=== PATIENT | male | born 2000 | race Caucasian/White ===

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

== ENCOUNTER 2019-02-24 20:13 | Emergency (ER) | payer OTHER ==
[2019-02-24 20:24] VITALS: BP 132/49; PULSE 80; TEMP 99.1; BMI 17.9
--- NOTE | 2019-02-24 21:05 | PDOC ---
History of Present Illness - General Chief Complaint: Laceration Stated Complaint: RT HAND LACERATION Time Seen by Provider: 02/24/19 20:57 History Source: Patient Exam Limitations: No Limitations Past History - Past Medical History Allergies/Adverse Reactions: Allergies Allergy/AdvReac Type Severity Reaction Status Date / Time No Known Allergies Allergy Verified 02/24/19 20:24 Home Medications: Ambulatory Orders No Home Medications 0 dose .ROUTE UTDICT 10/24/13 COPD: No Thyroid Disease: No - Immunization History Immunization Up to Date: Yes - Psycho Social/Smoking Cessation Hx Smoking History: Never smoked Have you smoked in the past 12 months: No Number of Cigarettes Smoked Daily: 0 Information on smoking cessation initiated: No Hx Alcohol Use: No Drug/Substance Use Hx: Yes Substance Use Type: None *Physical Exam - Vital Signs Last Vital Signs Temp Pulse Resp BP Pulse Ox 99.1 F 80 17 132/49 L 100 02/24/19 20:21 02/24/19 20:21 02/24/19 20:21 02/24/19 20:21 02/24/19 20:21 - Physical Exam General Appearance: No: Apparent Distress Extremity: positive: Other (around 1 cm linear laceration along base of R pinky finger along medial aspect, FROM of R hand/fingers, no deformity or swelling noted) Integumentary: negative: Ecchymosis, Bruising Neurologic: positive: Alert Procedures - Laceration/Wound Repair Right 5th digit Wound Length: to 2.5 cm Wound Explored: clean Wound's Depth, Shape: superficial Irrigated w/ Saline: Yes Betadine Prep: Yes Anesthesia: 1% Lidocaine Wound Debrided: moderate Wound Repaired With: Sutures Suture Size/Type: 5:0, nylon Number of Sutures: 3 Layer Closure: No Splint Applied: Yes Type of Splint Applied: Finger splint ED Treatment Course - RADIOLOGY Radiology Studies Ordered: Category Date Time Status HAND- RIGHT [RAD] Stat Radiology 02/24/19 21:00 Ordered Medical Decision Making - Medical Decision Making 19 y/o M with no sig pmh presents with R pinky finger laceration after states his mom accidentally closed door on his finger. States is already UTD on tetanus. Denies numbness, tingling, other complains Plan: Xray to r/o fracture Lac repair 02/24/19 21:03 Xray negative Please see lac repair note Splint applied given proximity of lac to joints 02/24/19 21:47 Discharge - Discharge Information Problems reviewed: Yes Clinical Impression/Diagnosis: Finger laceration Qualifiers: Encounter type: initial encounter Finger: little finger Damage to nail status: without damage Foreign body presence: without foreign body Laterality: right Qualified Code(s): S61.216A - Laceration without foreign body of right little finger without damage to nail, initial encounter Condition: Stable Disposition: HOME - Admission No - Additional Discharge Information Prescription Drug Monitoring Program (I-STOP) results: I-STOP not reviewed - Follow up/Referral - Patient Discharge Instructions Patient Printed Discharge Instructions: DI for Laceration Repair Additional Instructions: Thank you for choosing [facility]. It was a pleasure taking care of you. Please keep site of injury clean for the next 24 hours. You may then gently clean with soap and water. Please return in 7 to 10 days for suture removal. Return to the Emergency Department if your symptoms worsen or persist, you have fever, redness, purulent drainage, streaking or other concerning symptoms. - Post Discharge Activity
== END 2019-02-24 21:51 | disposition home or self-care (01) ==
LOC: JERFT 20:13
PROC: 0HQFXZZ Repair Right Hand Skin, External Approach (ICD-10-PCS; principal; 2019-02-24)
PROC: 2W3JX1Z Immobilization of Right Finger using Splint (ICD-10-PCS; 2019-02-24)
DX: S61.216A Laceration without foreign body of right little finger without damage to nail, initial encounter (principal); W23.0XXA Caught, crushed, jammed, or pinched between moving objects, initial encounter; Y93.89 Activity, other specified; Y92.038 Other place in apartment as the place of occurrence of the external cause; Y99.8 Other external cause status
CPT/HCPCS: 12001-25; 29130; 73130-TC-RT-FY; 99281-25

== ENCOUNTER 2019-03-02 12:10 | Emergency (ER) | payer OTHER ==
[2019-03-02 12:22] VITALS: BP 137/63; PULSE 62; TEMP 98.3; BMI 23.6
--- NOTE | 2019-03-02 13:51 | PDOC ---
History of Present Illness - General Chief Complaint: Vomiting Blood Stated Complaint: SUTURE REMOVAL Time Seen by Provider: 03/02/19 12:44 History Source: Patient Exam Limitations: No Limitations - History of Present Illness Initial Comments: 03/02/19 13:50 19-year-old male presents to ED with complaints of blood tinged sputum noted in the morning after brushing his teeth while clearing his throat. Patient states was not bleeding from his gums nor did he have a cough prior to onset. Patient states symptoms did not continue throughout the day but then again this morning after brushing his teeth had noticed it again. Patient denies difficulty breathing, chest pain, dizziness, stomach pain, or weight loss. patient denies smoking but was smoking marijuana up until 1 week ago. Is this a multiple visit Asthma Patient?: No Timing/Duration: intermittent Severity: mild Associated Symptoms: reports: denies symptoms Past History - Travel Traveled outside of the country in the last 30 days: No Close contact w/someone who was outside of country & ill: No - Past Medical History Allergies/Adverse Reactions: Allergies Allergy/AdvReac Type Severity Reaction Status Date / Time No Known Allergies Allergy Verified 02/24/19 20:24 Home Medications: Ambulatory Orders No Home Medications 0 dose .ROUTE UTDICT 10/24/13 COPD: No Thyroid Disease: No - Immunization History Immunization Up to Date: Yes - Psycho Social/Smoking Cessation Hx Smoking History: Never smoked Have you smoked in the past 12 months: No Number of Cigarettes Smoked Daily: 0 Hx Alcohol Use: No Drug/Substance Use Hx: No Substance Use Type: None Patient Lives Alone: No Lives with/in: spouse/SO Review of Systems - Review of Systems Able to Perform ROS?: Yes Constitutional: No: Symptoms Reported HEENTM: No: Symptoms Reported Respiratory: No: Symptoms reported Integumentary: Yes: Other Neurological: No: Symptoms reported Hematologic/Lymphatic: No: Symptoms Reported *Physical Exam - Vital Signs Last Vital Signs Temp Pulse Resp BP Pulse Ox 98.3 F 62 20 137/63 100 03/02/19 12:20 03/02/19 12:20 03/02/19 12:20 03/02/19 12:20 03/02/19 12:20 - Physical Exam General Appearance: Yes: Nourished, Appropriately Dressed. No: Apparent Distress HEENT: positive: EOMI, ROBLES, TMs Normal, Pharynx Normal. negative: Pale Conjunctivae Neck: positive: Normal Thyroid, Supple Respiratory/Chest: positive: Lungs Clear, Normal Breath Sounds. negative: Respiratory Distress, Accessory Muscle Use Cardiovascular: positive: Regular Rhythm, Regular Rate. negative: Murmur Gastrointestinal/Abdominal: positive: Soft. negative: Tenderness Integumentary: positive: Normal Color, Warm, Moist, Other (3 intact sutures to right hand) Neurologic: positive: Motor Strength 5/5 (Ambulatory) Medical Decision Making - Medical Decision Making 03/02/19 13:54 Chief complaint: Intermittent blood-tinged sputum after brushing his teeth x2 patient also here to remove sutures from his right hand. Exam: No abnormal findings on physical exam, vital signs stable sutures in place. Plan: Remove 3 sutures without difficulty using 11 blade scalpel. Discharge home with precautions and instructions to observe his sputum and avoid spicy / acidy foods. If noted patient is to follow-up with ENT Discharge - Discharge Information Problems reviewed: Yes Clinical Impression/Diagnosis: Visit for suture removal, Blood-tinged sputum Condition: Improved Disposition: HOME - Follow up/Referral Referrals: Juan Pablo Solis MD [Primary Care Provider] - Demond Cooley MD [Staff Physician] - - Patient Discharge Instructions Patient Printed Discharge Instructions: DI for Suture Removal Additional Instructions: Please avoid spicy and acidy foods to avoid irritation of your throat and esophagus. If you note symptoms again please follow-up with ENT - Post Discharge Activity
== END 2019-03-02 14:14 | disposition home or self-care (01) ==
LOC: JER 12:10
DX: Z48.02 Encounter for removal of sutures (principal)
CPT/HCPCS: 99281-25